=== PATIENT | male | born 1960 | race Caucasian/White ===

== ENCOUNTER 2020-09-16 11:25 | Emergency (ER) | payer OTHER ==
[~2020-09-16 11:25] MED LIST: CARAFATE1 GM PO; LIPITOR40 MG PO; METFORMIN HCL500 MG PO; NORCO 5-325 TA1 EACH PO; PERCOCET 5-3251 EACH PO; PROTONIX 40MG T40 MG PO; SYNTHROID50 MCG PO; ZESTRIL2.5 MG PO; ZYRTEC10 M3 PO
[2020-09-16 11:52] LABS: BASOPHIL 0.8 % (0-2); EOSINOPHIL 2.6 % (0-5); HCT 32.6 % (42.0-52.0); HGB 11.3 g/dl (13.2-18.0); LYMPHOCYTE 18.6 % (15-48); MCH 30.7 pg (25.0-31.0); MCHC 34.7 g/dL (32.0-36.0); MCV 88.6 fL (78.0-100.0); MONOCYTE 7.6 % (0-12); NEUTROPHIL 70.2 % (41-80); NRBC 0; PLT 188 K/uL (150-400); RBC 3.68 M/uL (4.70-6.00); RDW 13.9 % (11.5-14.0)
[2020-09-16 12:13] LABS: BILIRUBIN NEGATIVE (NEGATIVE); BLOOD 2+ Ery/uL (NEGATIVE); CLARITY CLEAR (CLEAR); COLOR YELLOW (YELLOW); GLUCOSE (U) NORMAL (NORMAL); LEUKOCYTES NEGATIVE Leu/uL (NEGATIVE); NITRITE NEGATIVE (NEGATIVE); PROTEIN NEGATIVE (NEGATIVE); UROBILINOGEN 0.2 mg/dL (0.2-1.0)
[2020-09-16 12:23] LABS: ALBUMIN 4.1 g/dL (3.4-5.0); BILIRUBIN - TOTAL 0.7 mg/dL (0.2-1.0); BUN/CREAT RATIO (CALC) 19.9 RATIO; CREATININE 1.46 mg/dL (0.67-1.17); GLOBULIN (CALCULATION) 3.6 g/dL; POTASSIUM 3.6 mmol/L (3.5-5.1); TOTAL PROTEIN 7.7 g/dL (6.4-8.2)
[2020-09-16 12:46] LABS: URINARY WBC RARE
[2020-09-16 12:47] LABS: URINARY RBC TNTC
[2020-09-16] MEDS ORDERED: HYDROCODON-ACE1 EAC2 PO (14:41)
[2020-09-16] MEDS ORDERED: FLOMAX 0.4 MG0.4 MG PO (14:41)
== END 2020-09-16 15:02 | disposition home or self-care (01) ==
LOC: FER 11:25
PROVIDERS: Emergency Medicine
DX: N13.2 Hydronephrosis with renal and ureteral calculous obstruction (principal); I10 Essential (primary) hypertension; Z85.810 Personal history of malignant neoplasm of tongue; Z87.19 Personal history of other diseases of the digestive system
CPT/HCPCS: 36415; 80053; 81001; 82150; 83690; 85025; J1885; J2405